=== PATIENT | male | born 1980 | race Caucasian/White ===

== ENCOUNTER → 2020-11-18 | Outpatient (CLI) | payer BC ==
[~2020-11-18] MED LIST: CEFUROXIME500 MG PO; CITRATE OF MAG296 ML PO; LODINE CAP 300300 MG PO; NEXIUM20 MG PO; NORCO 5-325 TA1 EACH PO
[2020-11-18 09:55] LABS: HEMOGLOBIN 15.4 gm/dl (14.0-17.5); RED BLOOD COUNT 5.11 M/UL (4.20-5.50); WHITE BLOOD COUNT 8.1 K/UL (4.5-11.0)
[2020-11-18 10:45] LABS: BUN/CREATININE RATIO 20 (0-10)
== END ==
LOC: LAB 09:23
PROVIDERS: Physician Assistant
DX: I10 Essential (primary) hypertension (principal)
CPT/HCPCS: 36415; 80048; 80061; 80076; 82607; 84443; 85025

== ENCOUNTER → 2021-03-01 | Outpatient (CLI) | payer BC ==
[2021-03-01 10:50] LABS: HEMOGLOBIN 15.5 gm/dl (14.0-17.5); RED BLOOD COUNT 5.12 M/UL (4.20-5.50); WHITE BLOOD COUNT 11.2 K/UL (4.5-11.0)
[2021-03-01 11:10] LABS: BUN/CREATININE RATIO 17 (0-10)
== END ==
LOC: LAB 10:00
PROVIDERS: Physician Assistant
DX: R73.03 Prediabetes (principal)
CPT/HCPCS: 80048; 80061; 80076; 82607; 83036; 84443; 85025

== ENCOUNTER → 2021-12-11 | Outpatient (CLI) | payer BC ==
[2021-12-11 09:10] LABS: HEMOGLOBIN 14.9 gm/dl (14.0-17.5); RED BLOOD COUNT 5.01 M/UL (4.20-5.50); WHITE BLOOD COUNT 12.1 K/UL (4.5-11.0)
[2021-12-11 09:32] LABS: BUN/CREATININE RATIO 17 (0-10)
[2021-12-12 08:15] LABS: VITAMIN D, 25-HYDROXY 34.1 ng/mL (30.0-100.0)
== END ==
LOC: LAB 08:40
PROVIDERS: Nurse Practitioner Family
DX: R53.83 Other fatigue (principal); F41.9 Anxiety disorder, unspecified; D72.829 Elevated white blood cell count, unspecified; E55.9 Vitamin D deficiency, unspecified; Z00.00 Encounter for general adult medical examination without abnormal findings; Z68.41 Body mass index [BMI] 40.0-44.9, adult
CPT/HCPCS: 36415; 80053; 80061; 82607; 82652; 83036; 84443; 85025

== ENCOUNTER → 2021-12-13 | Outpatient (CLI) | payer BC ==
[2021-12-17 16:10] LABS: TESTOSTERONE, SERUM 227 ng/dL (264-916)
== END ==
LOC: LAB 10:00
PROVIDERS: Family Medicine
DX: E29.1 Testicular hypofunction (principal)
CPT/HCPCS: 36415; 84402; 84403

== ENCOUNTER → 2021-12-26 | Outpatient (CLI) | payer BC ==
[2021-12-26 10:52] LABS: HEMOGLOBIN 14.6 gm/dl (14.0-17.5); RED BLOOD COUNT 4.94 M/UL (4.20-5.50)
== END ==
LOC: LAB 10:30
PROVIDERS: Nurse Practitioner Family
DX: E29.1 Testicular hypofunction (principal); D72.829 Elevated white blood cell count, unspecified
CPT/HCPCS: 36415; 84402; 84403; 85025